=== PATIENT | male | born 1955 | race Caucasian/White ===

== ENCOUNTER 2016-09-11 20:25 | Emergency (ER) | payer BC, OTHER ==
[~2016-09-11] VITALS: Ht 180.3 cm; Wt 97.7 kg
[~2016-09-11 20:25] MED LIST: FISH1200 PO; NIAC500T34 PO; RAMI5CAP36 PO; TAB-TAB PO; TOPR25TA2 PO; VYTO10TA35 PO
[2016-09-11] MEDS ORDERED: SODIUM CHLOR 0.9% 1000 ML INJ 1,000 ML IV SCH (20:45)
[2016-09-11] MEDS ORDERED: SODIUM CHLORIDE 0.9% FLUSH 10 ML FLUSH IVF PRN (20:45)
[2016-09-11] MEDS ORDERED: ONDANSETRON HCL 4 MG/2 ML VIAL IV PUSH ONE (20:45)
[2016-09-11] MEDS ORDERED: MORPHINE SULFATE 4 MG/ML INJ IV PUSH ONE (20:45)
[2016-09-11] MEDS ORDERED: MORPHINE SULFATE 8 MG/ML INJ ONE (20:54)
--- NOTE | 2016-09-11 20:59 | PD ---
HPI Chief Complaint: Injury Time Seen by Provider: 20:45 Travel History International Travel<30 days: No Contact w/Intl Traveler<30days: No Traveled to known affect area: No History of Present Illness HPI 61-year-old male presents to the emergency department by private transportation for complaint of severe right shoulder pain and upper arm pain status post non- syncopal slip and fall backwards while he was attempting to climb over a 3 foot fence. Patient states he did hit the back of his head but did not have loss of consciousness denies headache scalp pain no laceration and denies any neck pain. Patient does not report any upper extremity or lower extremity numbness tingling or weakness. Patient does not report any chest pain shortness of breath or rib pain. Patient denies any abdominal injury. Patient denies any back pain. Patient denies any lower extremity injury. Patient complains of isolated right shoulder pain. Patient has had previous right shoulder surgery right knee surgery has CAD and previous CABG. Patient's last meal was approximately 6 PM. Patient did eat dinner at that time. Patient rates pain 10 over 10 in intensity. Patient denies any right upper extremity elbow pain, forearm pain, wrist pain or hand pain. Patient is right-handed. Patient is aware of some superficial abrasions to his right knee. Patient reports last tetanus shot was approximately 4 years ago. Patient does take a low-dose aspirin daily and takes no other blood thinning agents. [facility] Past Medical History Narrative Medical CAD, MS, CABG, hypertension, dyslipidemia, sleep apnea with CPAP at nighttime, right shoulder surgery, right knee surgery, no tobaccoism; nursing notes reviewed Cancer: No Cardiovascular Problems: No Diabetes: No Endocrine: No Genitourinary: No Hepatitis: No Hiatal Hernia: No Immune Disorder: No Musculoskeletal: Yes (ARTHRITIS) Neurologic: No Psychiatric: No Reproductive: No Respiratory: Yes (SLEEP APNEA/ CPAP) Thyroid Disease: No Past Surgical History Abdominal Surgery: No AICD: No Cardiac Surgery: No Ear Surgery: No Endocrine Surgery: No Eye Surgery: No Genitourinary Surgery: No Gynecologic Surgery: No Joint Replacement: No Oral Surgery: Yes (TONSILLECTOMY) Pacemaker: No Thoracic Surgery: No Social History Tobacco Use: No Substance Use: No Allergies-Medications (Allergen,Severity, Reaction): Coded Allergies: No Known Allergies (Unverified , 7/12/17) Reported Meds & Prescriptions Reported Meds & Active Scripts Active Zofran Odt (Ondansetron Odt) 4 Mg Tab 4 Mg SL Q6HR PRN Lortab (Hydrocodone-Acetaminophen) 5-325 Mg Tab 1 Tab PO Q6H PRN Reported Ibuprofen 800 Mg Tab 800 Mg PO DAILY Multi-Vitamin Daily (Multiple Vitamin) 1 Tab Tab 1 Tab PO DAILY Aspirin Low Dose (Aspirin) 81 Mg Chew 81 Mg CHEW BID Simvastatin 20 Mg Tab 20 Mg PO DAILY Metoprolol Tartrate 50 Mg Tab 50 Mg PO BID Ramipril 5 Mg Cap 5 Mg PO DAILY Review of Systems Except as stated in HPI: all other systems reviewed are Neg General / Constitutional: No: Fever, Chills Eyes: No: Visual changes HENT: No: Headaches, Neck Pain Cardiovascular: No: Chest Pain or Discomfort Respiratory: No: Shortness of Breath Gastrointestinal: Positive: Nausea, No: Vomiting, Abdominal Pain Genitourinary: No: Flank Pain Musculoskeletal: Positive: Myalgias, Arthralgias, Limited ROM (right shoulder) , Pain (right shoulder) Skin: No Rash Neurologic: No: Weakness Psychiatric: No: Anxiety Endocrine: No: Heat Intolerance Hematologic/Lymphatic: No: Easy Bruising Physical Exam Narrative GENERAL: Well-developed well-nourished male in obvious discomfort no respiratory distress holding his right upper extremity and internal patient and adduction; GCS 15 SKIN: Warm and dry. HEAD: Atraumatic. Normocephalic. No scalp soft tissue swelling laceration on or palpable hematoma except for a small superficial right frontal scalp petechial changes consistent with contusion. Nontender. No bony step-off. EYES: Pupils equal and round. Extraocular muscles intact. No scleral icterus. No injection or drainage. ENT: No nasal bleeding or discharge. Mucous membranes pink and moist. Airway is patent. NECK: Trachea midline. No JVD. Nontender to direct palpation along the posterior cervical spine and no bony point tenderness or step-off. CARDIOVASCULAR: Regular rate and rhythm. RESPIRATORY: No accessory muscle use. Clear to auscultation. Breath sounds equal bilaterally. GASTROINTESTINAL: Abdomen soft, non-tender, nondistended. Hepatic and splenic margins not palpable. MUSCULOSKELETAL: Extremities without clubbing, cyanosis, or edema. Obvious step- off deformity affecting the right shoulder; otherwise no deformities identified. Attention right upper extremity distally is neurovascular tendon intact with capillary refill brisk and less than 2 seconds per digit thumb apposition is intact wrist extension presents sensory exam intact no tenderness or deformity to palpation at the wrist forearm elbow or distal to proximal humerus to palpation however obvious tenderness at the right shoulder with obvious deformity. No abrasions or lacerations to the right upper extremity. Superficial abrasion overlying the right knee. Distally lower extremities are neurovascularly intact. Left upper extremity is neurovascular tendon intact. NEUROLOGICAL: Awake and alert. No obvious cranial nerve deficits. Motor grossly within normal limits. Five out of 5 muscle strength in the arms and legs. Normal speech. PSYCHIATRIC: Appropriate mood and affect; insight and judgment normal. Data Data Last Documented VS Vital Signs Date Time Temp Pulse Resp B/P Pulse Ox O2 Delivery O2 Flow Rate FiO2 09/11/16 23:36 76 18 152/86 99 09/11/16 21:40 3.00 09/11/16 21:05 Room Air 09/11/16 21:05 98.5 Orders Electrocardiogram (09/11/16 20:45) Ecg Monitoring (09/11/16 20:45) Iv Access Insert/Monitor (09/11/16 20:45) Oximetry (09/11/16 20:45) Sodium Chloride 0.9% Flush (Ns Flush) (09/11/16 20:45) Ondansetron Inj (Zofran Inj) (09/11/16 20:45) Sodium Chlor 0.9% 1000 Ml Inj (Ns 1000 M (09/11/16 20:45) NPO (09/11/16 20:45) Shoulder, Limited(2vws) (09/11/16 ) Ice/Cold Pack (09/11/16 20:45) Morphine Inj (Morphine Inj) (09/11/16 20:54) Morphine Inj (Morphine Inj) (09/11/16 21:00) Propofol 200 Mg/20 Ml Inj (Diprivan 200 (09/11/16 21:30) Shoulder, Limited(2vws) (09/11/16 ) Humerus (Min 2vws) (09/11/16 ) Ct Brain W/O Iv Contrast(Rout) (09/11/16 ) Tetanus/Diphtheria Tox Adult (Tetanus/Di (09/11/16 23:15) MDM Medical Decision Making Medical Screen Exam Complete: Yes Emergency Medical Condition: Yes Medical Record Reviewed: Yes Interpretation(s) CT brain w/o: CONCLUSION: No acute disease. Tony Rivera MD FACR on September 11, 2016 at 22:48 Board Certified Radiologist. This report was verified electronically. Last Impressions Shoulder X-Ray 09/11/16 0000 Signed Impressions: Service Date/Time: Sunday, September 11, 2016 21:58 - CONCLUSION: Anatomic alignment without fracture. Fracture suspected CT scan may be helpful. MD SINTIA Bran Shoulder X-Ray 09/11/16 0000 Signed Impressions: Service Date/Time: Sunday, September 11, 2016 20:56 - CONCLUSION: Limited exam. MD SINTIA Bran Humerus X-Ray 09/11/16 0000 Signed Impressions: Service Date/Time: Sunday, September 11, 2016 21:59 - CONCLUSION: Anatomic alignment without fracture. MD SINTIA Bran Vital Signs Date Time Temp Pulse Resp B/P Pulse Ox O2 Delivery O2 Flow Rate FiO2 09/11/16 21:25 26 09/11/16 21:05 99 Room Air 09/11/16 21:05 98.5 85 28 153/81 99 Differential Diagnosis Mechanical fall, shoulder dislocation, fracture, minor CHI, ICH Narrative Course Patient placed on stretcher sling in place ice applied IV access obtained patient administered Zofran 4 mg IV morphine 4 mg IV and maintenance normal saline IV fluids; imaging study ordered Patient with difficulty obtaining bedside imaging therefore sent to x-ray department and crosstable imaging identifies dislocation of right humeral head with associated small avulsion fracture. Patient informed of imaging results and discussed in detail procedural sedation for closed reduction of the right shoulder dislocation; patient agrees to proceed with sedation and reduction in the emergency department. Patient sent for CT brain w/o contrast in view of history of hitting his head as he fell. @ 22:43 pm Patient again assessed and remained neurovascular tendon intact. Patient is stable for outpatient management and follow-up with orthopedist. reports that she actually has appointment with their orthopedist tomorrow and will try to have the patient seen instead. Procedures Procedure Narrative After the risks and benefits were discussed the following procedure was performed: MODERATE SEDATION: The patient was placed on a judge's clerk and pulse oximetry. An ambu bag and suction was immediately available at bedside. The patient was monitored by the nurse. Oxygen saturation, heart rate and blood pressure were monitored. Procedural sedation was achieved using Propofol 100 mg iv . The patient was observed until awake and alert. Procedural Sedation time in attendance was 40 minutes. After informed verbal and written consent for closed reduction of right shoulder dislocation; patient was placed in optimal supine position, placed on judge's clerk with continuous pulse oximetry and end tidal volume monitoring; patient achieved successful procedural sedation with propofol and with traction counter traction the right humeral head easily slipped back into to place in the glenoid fossa; RUE was secured with sling and swath placement. Patient remained neurovascular tendon intact. Patient was continuously monitored and subsequently sent for post reduction films which revealed radiographically successful reduction without fracture noted. 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
[2016-09-11] MEDS ORDERED: MORPHINE SULFATE 8 MG/ML INJ IV PUSH ONE (21:00)
[2016-09-11 21:05] VITALS: BP 153/81; PULSE 85; RESP 28; TEMP 98.5; O2SAT 99
[2016-09-11 21:25] VITALS: RESP 26
[2016-09-11] MEDS ORDERED: PROPOFOL 200 MG/20 ML AMP IV ONE (21:30)
--- NOTE | 2016-09-11 21:32 | RADRPT ---
EXAM DATE/TIME: 09/11/2016 20:56 [facility] COMPARISON: No previous studies available for comparison. INDICATIONS : Right shoulder pain after falling tonight. Severely limited exam because of body habitus. MEDICAL HISTORY : None. SURGICAL HISTORY : None. ENCOUNTER: Initial ACUITY: 1 day PAIN SCORE: 10/10 LOCATION: Right shoulder. FINDINGS: Very limited exam without fracture. CONCLUSION: Limited exam. Tony Rivera MD FACR on September 11, 2016 at 21:30 Board Certified Radiologist. This report was verified electronically.
[2016-09-11 21:40] VITALS: O2SAT 100
--- NOTE | 2016-09-11 22:10 | EKG ---
Date Performed: 09/11/2016 Time Performed: 21:46:28 PTAGE: 61 years EKG: Sinus rhythm RIGHT BUNDLE BRANCH BLOCK ABNORMAL ECG PREVIOUS TRACING : 09/28/2012 15.36 No significant change from previous tracing noted. DOCTOR: Mikey Gupta Interpretating Date/Time 09/11/2016 22:09:10
--- NOTE | 2016-09-11 22:15 | RADRPT ---
EXAM DATE/TIME: 09/11/2016 21:58 [facility] COMPARISON: SHOULDER RIGHT LTD (2VWS), September 11, 2016, 20:56. INDICATIONS : Post reduction of the right shoulder. MEDICAL HISTORY : None. SURGICAL HISTORY : None. ENCOUNTER: Subsequent ACUITY: 1 day PAIN SCORE: 5/10 LOCATION: Right shoulder. FINDINGS: There is anatomic alignment without fracture. CONCLUSION: Anatomic alignment without fracture. Fracture suspected CT scan may be helpful. Tony Rivera MD FACR on September 11, 2016 at 22:13 Board Certified Radiologist. This report was verified electronically.
[2016-09-11] MEDS ORDERED: METO50TA PO (22:17)
[2016-09-11] MEDS ORDERED: ASPI81CH37 CHEW (22:17)
[2016-09-11] MEDS ORDERED: RAMI5CAP PO (22:17)
[2016-09-11] MEDS ORDERED: SIMV20TA PO (22:17)
[2016-09-11] MEDS ORDERED: MULT-65 PO (22:17)
[2016-09-11] MEDS ORDERED: IBUP800T23 PO (22:17)
--- NOTE | 2016-09-11 22:17 | RADRPT ---
EXAM DATE/TIME: 09/11/2016 21:59 [facility] COMPARISON: No previous studies available for comparison. INDICATIONS : Right arm pain after falling today. MEDICAL HISTORY : None. SURGICAL HISTORY : None. ENCOUNTER: Subsequent ACUITY: 1 day PAIN SCORE: 5/10 LOCATION: Right humerus. FINDINGS: Two view examination of the right humerus demonstrates no evidence of fracture or dislocation. Bony mineralization is normal. The soft tissue structures are intact. CONCLUSION: Anatomic alignment without fracture. Tony Rivera MD FACR on September 11, 2016 at 22:14 Board Certified Radiologist. This report was verified electronically.
[2016-09-11] MEDS ORDERED: ZOFR4TAB3 SL (22:48)
[2016-09-11] MEDS ORDERED: HYDR-3533 PO (22:48)
--- NOTE | 2016-09-11 22:50 | RADRPT ---
EXAM DATE/TIME: 09/11/2016 22:25 [facility] COMPARISON: No previous studies available for comparison. INDICATIONS : Trauma,fall. RADIATION DOSE: 63.42 CTDIvol (mGy) MEDICAL HISTORY : None SURGICAL HISTORY : None. ENCOUNTER: Subsequent ACUITY: 1 day PAIN SCALE: 0/10 LOCATION: cranial TECHNIQUE: Multiple contiguous axial images were obtained of the head. Using automated exposure control and adj ustment of the mA and/or kV according to patient size, radiation dose was kept as low as reasonably a chievable to obtain optimal diagnostic quality images. DICOM format image data is available electro nically for review and comparison. FINDINGS: CEREBRUM: The ventricles are normal for age. No evidence of midline shift, mass lesion, hemorrhage or acute in farction. No extra-axial fluid collections are seen. POSTERIOR FOSSA: The cerebellum and brainstem are intact. The 4th ventricle is midline. The cerebellopontine angle i s unremarkable. EXTRACRANIAL: The visualized portion of the orbits is intact. SKULL: The calvaria is intact. No evidence of skull fracture. CONCLUSION: No acute disease. Tony Rivera MD FACR on September 11, 2016 at 22:48 Board Certified Radiologist. This report was verified electronically.
[2016-09-11] MEDS ORDERED: TETANUS/DIPHTHERIA TOXOID ADULT 0.5 ML VIAL IM ONE (23:15)
[2016-09-11 23:36] VITALS: BP 152/86
== END 2016-09-11 23:38 | disposition home or self-care (01) ==
LOC: PHEFT 20:25
DX: S42.291A Other displaced fracture of upper end of right humerus, initial encounter for closed fracture (principal); S43.014A Anterior dislocation of right humerus, initial encounter; S09.90XA Unspecified injury of head, initial encounter; R94.31 Abnormal electrocardiogram [ECG] [EKG]; W01.0XXA Fall on same level from slipping, tripping and stumbling without subsequent striking against object, initial encounter; Y93.39 Activity, other involving climbing, rappelling and jumping off
CPT/HCPCS: 23650; 70450; 73030; 73060; 93005; 96361; 96374; 96375; 99152; 99153; 99285; J2270; J2405; J7030